=== PATIENT | female | born 1960 | race Two or more races ===

== ENCOUNTER 2022-04-14 11:00 | Emergency (ER) | payer OTHER ==
[~2022-04-14] VITALS: Ht 152.4 cm; Wt 68.0 kg
[2022-04-14] MEDS ORDERED: LIPITOR40 M1 PO (11:30)
[2022-04-14] MEDS ORDERED: PENTOXIFYLLINE400 MG PO (11:30)
[2022-04-14] MEDS ORDERED: CHILDREN'S ASPI81 MG PO (11:31)
[2022-04-14] MEDS ORDERED: CLOPIDOGREL BIS75 MG PO (11:31)
[2022-04-14] MEDS ORDERED: ZESTRIL40 M1 PO (11:31)
[2022-04-14] MEDS ORDERED: JENTADUETO 2.51 EAC2 PO (11:31)
[2022-04-14] MEDS ORDERED: NORFLEX100MG PO (14:06)
== END 2022-04-14 14:53 | disposition home or self-care (01) ==
LOC: ER 11:00
DX: M25.562 Pain in left knee (principal); M54.50 Low back pain, unspecified; E11.9 Type 2 diabetes mellitus without complications; Z79.84 Long term (current) use of oral hypoglycemic drugs; I10 Essential (primary) hypertension